=== PATIENT | male | born 1955 ===

== ENCOUNTER 2018-09-17 10:50 | Emergency (ER) | payer SELFPAY ==
[~2018-09-17] VITALS: Ht 152.4 cm; Wt 55.0 kg
[2018-09-17 11:10] VITALS: Ht 152.4 cm; Wt 55.0 kg
--- NOTE | 2018-09-17 12:13 | ERD ---
ER Documentation Chief Complaint Chief Complaint Right sided face/right arm numbness at 1010am short episode now resolved HPI 63-year-old male brought to the emergency department by paramedics for evaluation of numbness. History available from the patient's daughter who is acting as Malagasy broach trouble shooter. Patient was in his usual state of health until approximately 10:10 AM at which time he had an episode of less than 2 minutes of tingling and numbness on the right side of his face and his right upper extremity. Patient had no concurrent headache, focal weakness, numbness, difficulty speaking. The symptoms were brief and self-limited. I have reviewed the training analyst pre-hospital care. Pre-hospital vital signs were reviewed. Pre-hospital diagnostic tests were reviewed. Upon arrival, patient is totally asymptomatic. ROS All systems reviewed and are negative except as per history of present illness. Medications Home Meds No Active Prescriptions or Reported Meds Allergies Allergies: Coded Allergies: No Known Allergy (Unverified , 09/17/18) PMhx/Soc Medical and Surgical Hx: pt denies Medical Hx, pt denies Surgical Hx Hx Alcohol Use: No Hx Substance Use: No Hx Tobacco Use: No Smoking Status: Former smoker FmHx Family history of stroke Physical Exam Vitals Vital Signs Date Temp Pulse Resp B/P (MAP) Pulse Ox O2 O2 Flow FiO2 Time Delivery Rate 09/17/18 98.2 88 20 151/90 98 11:10 (110) Physical Exam GENERAL: The patient is well developed and appropriate for usual state of health in no apparent distress HEENT: Pupils equal, round, and reactive to light. EOMI. There is no scleral icterus. NECK: C-spine is soft and supple, there is no meningismus. There is no cervical lymphadenopathy. LUNGS: Clear to auscultation bilaterally. There are no rales, wheezes or rhonchi. HEART: Regular rate and rhythm, no murmurs, clicks, rubs or gallops. ABDOMEN: Soft, non-tender, non-distended. There are bowel sounds in all four quadrants. No rebound or guarding. EXTREMITIES: There is no peripheral cyanosis or edema. No focal swelling or erythema. NEURO: Awake, alert, oriented. Normal speech and coordination. Pupils are midrange, equal round and reactive to light. Face is symmetric. Motor strength is 5 out of 5 without pronator drift in all 4 extremities. Sensory examination is nonfocal in all 4 extremities. [id number] is normal bilaterally. He has a normal gait and balance. NIHSS equals 0 SKIN: There is no apparent rash or petechiae. HEME/LYMPHATIC: There is no evidence of excessive bruising or lymphedema. PSYCHIATRIC: The patient does not appear anxious or depressed. Result Diagram: 09/17/18 1100 09/17/18 1100 Results 24 hrs Laboratory Tests Test 09/17/18 11:00 09/17/18 11:35 White Blood Count 6.8 10^3/ul Red Blood Count 4.49 10^6/ul Hemoglobin 13.6 g/dl Hematocrit 40.1 % Mean Corpuscular Volume 89.3 fl Mean Corpuscular Hemoglobin 30.3 pg Mean Corpuscular Hemoglobin Concent 33.9 g/dl Red Cell Distribution Width 12.4 % Platelet Count 205 10^3/UL Mean Platelet Volume 11.1 fl Immature Granulocytes % 0.300 % Neutrophils % 58.9 % Lymphocytes % 31.5 % Monocytes % 6.1 % Eosinophils % 2.6 % Basophils % 0.6 % Nucleated Red Blood Cells % 0.0 /100WBC Immature Granulocytes # 0.020 10^3/ul Neutrophils # 4.0 10^3/ul Lymphocytes # 2.2 10^3/ul Monocytes # 0.4 10^3/ul Eosinophils # 0.2 10^3/ul Basophils # 0.0 10^3/ul Nucleated Red Blood Cells # 0.0 10^3/ul Prothrombin Time 13.6 Sec Prothrombin Time Ratio 1.1 INR International Normalized Ratio 1.03 Activated Partial Thromboplast Time 30.6 Sec Sodium Level 141 mmol/L Potassium Level 3.9 mmol/L Chloride Level 105 mmol/L Carbon Dioxide Level 27 mmol/L Anion Gap 9 Blood Urea Nitrogen 12 mg/dl Creatinine 0.90 mg/dl Est Glomerular Filtrat Rate mL/min > 60 mL/min Glucose Level 139 mg/dl Hemoglobin A1c 5.1 % Calcium Level 8.8 mg/dl Creatine Kinase 115 IU/L Creatine Kinase Index 0.7 Creatinine Kinase MB (Mass) 0.82 ng/ml Troponin I < 0.012 ng/ml Triglycerides Level 173 mg/dl Cholesterol Level 178 mg/dl LDL Cholesterol, Calculated 80 mg/dl HDL Cholesterol 63 mg/dl Cholesterol/HDL Ratio 2.8 RATIO Ethyl Alcohol Level < 10.0 mg/dl Bedside Glucose 109 mg/dL Procedures/MDM Patient was taken to a room, seen and evaluated. Comfort measures were initiated. Diagnostic tests were ordered and reviewed. 3 LEAD RHYTHM STRIP: Normal sinus rhythm without ectopy EK lead EKG reviewed by myself: Normal Sinus Rhythm Normal [place] and intervals No ST elevation, depression, or T wave inversion Impression: Normal EKG RADIOLOGY: Reviewed with the radiologist REEVALUATION: 1200: Patient was reevaluated and remained neurologically normal with an NIHSS of 0. Diagnostic tests were appreciated and discussed with the patient and family. The family was comfortable that this is unlikely to be a stroke/TIA and felt comfortable taking the patient home. MEDICAL DECISION MAKIN-year-old male but comes to the emergency department for evaluation of a transient, brief neurologic episode with now a normal examination. At this time, the patient's initial presenting history is not consistent with stroke or TIA and the only patient's risk factor is his family history. I have offered admission to the hospital for observation, carotid ultrasound as well as MRI. However, the family is comfortable that this is unlikely to be a true neurologic event and I feel comfortable watching the patient as an outpatient. Departure Diagnosis: Primary Impression: Numbness Patient Instructions: Paraesthesias Additional Instructions: See your doctor for follow-up as discussed. Take a copy of your test results, if appropriate, to this follow-up visit. See your doctor or return here if your symptoms do not improve as expected. At any time, please return to the emergency department for any change or worsening in her symptoms. BRITTANY WEST Sep 17, 2018 12:13
[2018-09-17 12:18] VITALS: BP 144/96; PULSE 74; RESP 20
== END 2018-09-17 12:18 | disposition home or self-care (01) ==
LOC: E/R 10:50
DX: R20.0 Anesthesia of skin (principal); R06.00 Dyspnea, unspecified
CPT/HCPCS: 36415; 70450; 71045; 80048; 80061; 80307; 82550; 82553; 82962; 83036; 84484; 85025; 85610; 85730; 93005